=== PATIENT | male | born 1950 | race Caucasian/White ===

== ENCOUNTER 2018-04-18 08:59 | Day surgery (SDC) | payer OTHER ==
[~2018-04-18 08:59] MED LIST: DOXORUBICIN MISC ONE; MICRON MICROSPH MISC ONE
[2018-04-18] MEDS ORDERED: MIDAZOLAM 2 MG/2 ML VIAL IVP PRN (10:19)
[2018-04-18] MEDS ORDERED: FLUMAZENIL 0.5 MG/5 ML MDV IVP PRN (10:19)
[2018-04-18] MEDS ORDERED: fentaNYL 100 MCG/2 ML INJ IVP PRN (10:19)
[2018-04-18] MEDS ORDERED: NALOXONE HCL 0.4 MG/ML INJ IVP PRN (10:19)
[2018-04-18] MEDS ORDERED: HEPARIN 10,000 UNIT/10 ML MDV (1,000 UNIT/ML) IVP PRN (10:19)
[2018-04-18] MEDS ORDERED: NS 1,000 ML IV SCH ×2 (10:30→14:15)
[2018-04-18] MEDS ORDERED: methylPREDNISolone SOD SUCC 125 MG/2 ML VIAL IVP ONE (10:59)
--- NOTE | 2018-04-18 11:11 | PDGENHP ---
History & Physical Chief Complaint: HCC, TWO HEPATIC LESIONS History of Present Illness: NEVER BEEN ON CHEMOTHERAPY; S/P CHEMOEMBOLIZATION Pertinent Past, Social, Family History: PROSTATE REMOVAL; BURSA REMOVAL ON LT ELBOW; NON SMOKER Relevant Physical Exam: IN NO DISTRESS. NO PAIN. Cardiorespiratory Assessment: RRR, CTA
--- NOTE | 2018-04-18 11:12 | PDPROPOC ---
Sedation Plan of Care Sedation Plan of Care: vital signs stable, mental status noted, patient educated of risks, benefits, alternatives, patient can tolerate sedation ASA Classification: ASA 3 Planned drugs: fentanyl, midazolam Mallampati Score: Class 4 Mallampati Reference Image: Patient passed 3-3-2 rule?: Yes
[2018-04-18 11:27] LABS: INR 1.46 (0.83-1.16); PLATELET COUNT 46 10^3/uL (150-400); PROTIME(PATIENT) 17.9 SEC (12.0-15.0)
[2018-04-18] MEDS ORDERED: IOPAMIDOL (ISOVUE-370) 150 ML BTL IV ONE ×2 (13:13→13:46)
[2018-04-18] MEDS ORDERED: NITROGLYCERIN/D5W 50 MG/250 ML BOTTLE IV ONE (13:46)
[2018-04-18 13:53] VITALS: BP 156/95
[2018-04-18] MEDS ORDERED: OXYCODONE/APAP 5/325 TAB PO PRN (14:02)
[2018-04-18] MEDS ORDERED: ONDANSETRON 4 MG/2 ML VIAL IVP PRN (14:02)
--- NOTE | 2018-04-18 14:05 | PDRADPN ---
Radiology Procedure Note Date of Procedure: 04/18/18 Radiologist: Alysa Esteves Anesthesia: IV Sedation Pre-op Diagnosis: HCC Post-op Diagnosis: SAME Indication: CHEMOEMBOLIZATION Procedure: VISCERAL ANGIOGRAM WITH EMBOLIZATION Finding(s): SMALL PERIPHERAL VESSELS EMBOLIZED. 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 Inf/Abcess present in the surg proc area at time of surgery?: No
== END 2018-04-18 18:18 | disposition home or self-care (01) ==
LOC: FIMAGING 08:59
PROVIDERS: ATTEND Radiology Diagnostic Radiology
PROC: 04L33DZ Occlusion of Hepatic Artery with Intraluminal Device, Percutaneous Approach (ICD-10-PCS; principal; 2018-04-18)
DX: C22.0 Liver cell carcinoma (principal); K74.60 Unspecified cirrhosis of liver; K75.81 Nonalcoholic steatohepatitis (NASH)
CPT/HCPCS: 36245; 36247; 37243; 75726; 99152; 99153; C1769; C1894; J0696; J1200; J1644; J2250; J2930; J3010; J9000; Q9967

== ENCOUNTER 2018-04-26 07:20 | Day surgery (SDC) | payer OTHER ==
[2018-04-26] MEDS ORDERED: NALOXONE HCL 0.4 MG/ML INJ IVP PRN ×2 (07:43→12:39)
[2018-04-26] MEDS ORDERED: NS 1,000 ML IV ONE (07:43)
[2018-04-26] MEDS ORDERED: MIDAZOLAM 2 MG/2 ML VIAL IVP PRN (07:43)
[2018-04-26] MEDS ORDERED: methylPREDNISolone SOD SUCC 125 MG/2 ML VIAL IVP ONE (07:43)
[2018-04-26] MEDS ORDERED: GLUCAGON HCL 1 MG VIAL IVP PRN (07:43)
[2018-04-26] MEDS ORDERED: FLUMAZENIL 0.5 MG/5 ML MDV IVP PRN (07:43)
[2018-04-26] MEDS ORDERED: HEPARIN 10,000 UNIT/10 ML MDV (1,000 UNIT/ML) IVP PRN (07:43)
[2018-04-26] MEDS ORDERED: PROTAMINE SULFATE 50 MG/5 ML VIAL IVP PRN (07:43)
[2018-04-26] MEDS ORDERED: MEPERIDINE 25 MG/ML SYR IVP PRN (07:43)
[2018-04-26] MEDS ORDERED: ALTEPLASE 2 MG VIAL IVP PRN (07:43)
[2018-04-26] MEDS ORDERED: fentaNYL 100 MCG/2 ML INJ IVP PRN ×2 (07:43→12:39)
[2018-04-26] MEDS ORDERED: DOXORUBICIN MISC ONE (08:00)
[2018-04-26] MEDS ORDERED: MICRON MICROSPH MISC ONE (08:00)
[2018-04-26] MEDS ORDERED: LR 1,000 ML IV ONE (08:23)
--- NOTE | 2018-04-26 09:12 | PDRADPRE ---
Radiology History & Physical Indication for procedure: liver disease, other (HCC --> Plan for TACE/MWA of dominant seg 8 lesion. Prior lesions treated with 50 mg Doxorubicin, plan for remainder of 50 mg Doxorubicin into dominant lesion following shutdown of arterioportal shunt. ) Home medications: Bicalutamide [Casodex (*)] 50 mg PO DAILY 04/13/18 [Last Taken 04/25/18] Vitamins B1,B2,B3,B5,and B6 04/13/18 [Last Taken 04/25/18] Iron 1 tab PO DAILY 04/18/18 [Last Taken 04/25/18] Hyoscyamine Sulfate 125 mcg PO DAILY 04/20/18 [Last Taken 04/25/18] Allergies/Adverse Reactions: ibuprofen Allergy (Verified 04/18/18 10:21) fixed hive Seasonal allergies Allergy (Uncoded 04/13/18 18:04) Mental status: A&Ox3 Heart exam: regular rate and rhythm Lungs exam: clear to auscultation Mallampati Score: Class 3
[2018-04-26] MEDS ORDERED: levOFLOXACIN 500 MG/DEXTROSE 100 ML IV ONE (09:15)
--- NOTE | 2018-04-26 09:18 | PDANEPAE ---
ANE Past Medical History - Cardiovascular History Hx Hypertension: No Hx Arrhythmias: No Hx Chest Pain: No Hx Coronary Artery / Peripheral Vascular Disease: No Hx CHF / Valvular Disease: No Hx Palpitations: No - Pulmonary History Hx COPD: No Hx Asthma/Reactive Airway Disease: No Hx Recent Upper Respiratory Infection: No Hx Oxygen in Use at Home: No Hx Sleep Apnea: Yes Sleep Apnea Screening Result - Last Documented: Positive - Neurologic History Hx Cerebrovascular Accident: No Hx Seizures: No Hx Dementia: No - Endocrine History Hx Diabetes: No Obesity: moderate - Renal History Hx Renal Disorders: No - Liver History Hx Hepatic Disorders: Yes Hepatic History Comment: Fatty Liver, Cirrhosis, Lesion on Liver - Neurological & Psychiatric Hx Hx Neurological and Psychiatric Disorders: No - Cancer History Hx Cancer: Yes Cancer History Comment: Prostate CA - Congenital Disorder History Hx Congenital Disorders: No - GI History GERD: mild Hx Gastrointestinal Disorders: Yes Gastrointestinal History Comment: GERD - Other Health History Other Health History: Poor hearing "sounds like I'm a tunnel", eczema, low platlet count - Chronic Pain History Chronic Pain: No - Surgical History Prior Surgeries: Prostate 2000. Bunionectomy, bilat. left Bursa sack removed ANE Review of Systems Review of Systems: - Exercise capacity METS (RN): 4 METS ANE Patient History - Allergies Allergies/Adverse Reactions: ibuprofen Allergy (Verified 04/18/18 10:21) fixed hive Seasonal allergies Allergy (Uncoded 04/13/18 18:04) - Home Medications Home medications: home medication list seen and reviewed Home Medications: Bicalutamide [Casodex (*)] 50 mg PO DAILY 04/13/18 [Last Taken 04/25/18] Vitamins B1,B2,B3,B5,and B6 04/13/18 [Last Taken 04/25/18] Iron 1 tab PO DAILY 04/18/18 [Last Taken 04/25/18] Hyoscyamine Sulfate 125 mcg PO DAILY 04/20/18 [Last Taken 04/25/18] - NPO status NPO Status: no food or drink >8 hours - Anes Hx Anes Hx: no prior problems - Smoking Hx Smoking Status: Never smoked - Family Anes Hx Family Hx Anesthesia Complications: none ANE Labs/Vital Signs - Vital Signs Blood Pressure: 120/78 Heart Rate: 72 Respiratory Rate: 18 O2 Sat (%): 93 Height: 171.45 cm Weight: 92.986 kg ANE Physical Exam - Airway Neck exam: FROM Mallampati Score: Class 2 Mouth exam: normal dental/mouth exam - Pulmonary Pulmonary: no respiratory distress, no rales or rhonchi, clear to auscultation - Cardiovascular Cardiovascular: regular rate and rhythym, no murmur, rub, or gallop - ASA Status ASA Status: II ANE Anesthesia Plan Anesthesia Plan: general endotracheal anesthesia
[2018-04-26] MEDS ORDERED: PROPOFOL/EMULSION 500 MG/50 ML BOTTLE IV ONE (09:40)
[2018-04-26] MEDS ORDERED: HYDROmorphONE/DILAUDID 2 MG/ML INJ ONE (09:40)
[2018-04-26] MEDS ORDERED: ROCURONIUM 100 MG/10 ML VIAL ONE (09:45)
[2018-04-26] MEDS ORDERED: ONDANSETRON 4 MG/2 ML VIAL ONE (09:45)
[2018-04-26] MEDS ORDERED: LIDOCAINE 2% 5 ML SDV ONE (09:45)
[2018-04-26] MEDS ORDERED: DEXAMETHASONE 4 MG/ML VIAL ONE (09:46)
[2018-04-26] MEDS ORDERED: IOPAMIDOL (ISOVUE-300) 100 ML BTL ONE (10:16)
[2018-04-26] MEDS ORDERED: PHENYLEPHRINE HCL 100 MCG/ML SYR ONE (10:35)
[2018-04-26] MEDS ORDERED: LIDOCAINE 1% 300 MG/30 ML SDV ONE (10:54)
[2018-04-26] MEDS ORDERED: IOPAMIDOL (ISOVUE-300) 150 ML BTL ONE (11:10)
[2018-04-26] MEDS ORDERED: PROMETHAZINE HCL 25 MG/ML INJ IVP PRN (12:39)
[2018-04-26] MEDS ORDERED: ONDANSETRON 4 MG/2 ML VIAL IVP PRN (12:39)
[2018-04-26] MEDS ORDERED: ACETAMINOPHEN 500 MG TAB PO PRN (12:39)
[2018-04-26] MEDS ORDERED: DIAZEPAM 5 MG/ML 1 ML SYR IVP PRN (12:39)
[2018-04-26] MEDS ORDERED: HYDROCODONE/APAP 5/325 TAB PO PRN (12:39)
[2018-04-26] MEDS ORDERED: NS 500 ML IV PRN (12:39)
[2018-04-26] MEDS ORDERED: oxyCODONE IR 5 MG TAB PO PRN (12:39)
--- NOTE | 2018-04-26 12:41 | POSTANESTH ---
Post Anesthetic Evaluation Cardiovascular Status: Normal, Stable, Similar to Pre-Op Cond Respiratory Status: Normal, Stable, Similar to Pre-op Cond. Level of Consciousness/Mental Status: Can Participate in Eval, Mildly Sleepy, Arousable Pain Control: Adequate, Prn Tx Ordered Nausea/Vomiting Control: Adequate, Prn Tx Ordered Complications Possibly Related to Anesthesia: None Noted
--- NOTE | 2018-04-26 13:26 | PDRADPN ---
Radiology Procedure Note Date of Procedure: 04/26/18 Radiologist: Tera Monreal Anesthesia: GET(General Endotracheal) Pre-op Diagnosis: HCC Post-op Diagnosis: HCC Indication: HCC Procedure: TACE/MWA Finding(s): Combination TACE and MWA segment 8 lesion superselectively. Inf/Abcess present in the surg proc area at time of surgery?: No
[2018-04-26 14:55] VITALS: BP 114/75
[2018-04-26] MEDS ORDERED: GLYCOPYRROLATE 0.2 MG/1 ML VIAL ONE (15:14)
[2018-04-26] MEDS ORDERED: METOCLOPRAMIDE 10 MG/2 ML VIAL ONE (15:14)
[2018-04-26] MEDS ORDERED: PHENYLEPHRINE 10 MG/ML SDV ONE (15:14)
[2018-04-26] MEDS ORDERED: NEOSTIGMINE METHYLSULFATE 5 MG/5 ML SYR ONE (15:14)
== END 2018-04-26 15:10 | disposition home or self-care (01) ==
LOC: FSGY 07:20
PROVIDERS: ATTEND Radiology Diagnostic Radiology
DX: C22.0 Liver cell carcinoma (principal)
CPT/HCPCS: 36245; 36247; 37243; 75726; 77013; C1769; C1760; J1100; J1170; J1644; J1956; J2370; J2405; J2704; J2710; J2765; J9000; Q9967